=== PATIENT | female | born 1940 | race Caucasian/White ===

== ENCOUNTER 2024-11-15 03:29 | Emergency (ER) | payer OTHER, SELFPAY ==
[2024-11-15 03:42] VITALS: BMI 19.0
[2024-11-15 04:03] VITALS: BP 148/85
[2024-11-15 05:00] VITALS: BP 160/95
[2024-11-15 06:00] VITALS: BP 168/91
[2024-11-15 07:00] VITALS: BP 182/83
--- NOTE | 2024-11-15 07:43 | ED.GENMED ---
History of Present Illness
General
Chief Complaint: Fall
Source: patient, family, ambulance crew and [facility]
Exam Limitations: other ([place]-speaking preferring family translation pulmonary disease specialist was offered)
Time Seen by Provider: 11/15/24 07:03
Nursing documentation reviewed up to this point in time: agreed with
History of Present Illness
History of Present Illness:
84-year-old female past medical history of A-fib, hypertension, anemia presenting to the emergency department from nursing facility after a fall. She claims was mechanical occurring a few hours ago. Was not witnessed does have limited memory of
the fall which is normal for her. She had a right hip repair 10 days ago. Also has been treated for potential wound infection over the past of the right hip. She denies any fevers or any current issues other than ongoing right-sided hip pain.
Denies any numbness weakness neck pain head discomfort she does not believe she hit her head but is unsure.
Review of Systems
Review of Systems
Allergies reviewed?: Yes
All Other Systems: ROS reviewed and negative except as documented in HPI and ROS
Phy Exam
Physical Exam
Physical Exam:
GENERAL: Alert , in no apparent distress
EYE: pupils equal and reactive
NECK: Supple, no significant adenopathy.
ENT: o/p clr, mmm.
CARDIAC: Regular rate and rhythm .
LUNGS: Clear breath sounds bilaterally, no acute respiratory distress, no wheezes/rales/rhonchi
ABDOMEN: Soft, without focal tenderness, no r/g, no cvat
NEUROLOGICAL: Alert and oriented, no focal neuro deficits
SKIN: Incision to the right some very vague mild redness no fluctuance or induration no significant point tenderness surrounding the area. Warm and dry, skin intact.
MUSCULOSKELETAL: No edema, well perfused.
PSYCH: Normal and appropriate interaction.
Course
Orders/Labs/Results
Orders:
Orders
11/15/24 03:35
Hand, Right 3 View [CR Hand - Right Min 3 Views] Urgent
Comment:
Reason For Exam: fall
Hip, Right 2-3 Views [CR Hip - RT w/wo Pel 2-3 Vw*] Urgent
Comment:
Reason For Exam: fall
Include a pelvis x-ray?: Yes
11/15/24 07:18
EKG [Electrocardiogram (*1)] Urgent
Reason for Study: Fatigue / Weakness
CT Head W/o Iv Contrast Urgent
Comment:
Reason For Exam: fall unwitnessed
11/15/24 07:19
EKG- Treatment ONCE
11/15/24 08:36
CBC/With Diff [Complete Blood Count/With Diff] Urgent
CMP [Comprehensive Metabolic Panel] Urgent
Creatine Phosphokinase Urgent
Urinalysis Reflex To Culture Urgent
Date Specimen was Collected: 11/15/24
Time Specimen was Collected: 07:44
11/15/24 08:39
CR Wrist - Right Min 3 Views Urgent
Comment:
Reason For Exam: eval for distal radius fx
Abnormal Lab Results
11/15/24
08:36
RBC 3.56 L 10^6/uL
(4.20-5.40)
Hgb 10.6 L g/dL
(12.0-16.0)
Hct 31.5 L %
(37.0-47.0)
Sodium 131 L mmol/L
(135-145)
BUN 24 H mg/dl
(7-17)
Glucose 104 H mg/dl
(70-99)
Total Protein 5.7 L g/dl
(6.3-8.2)
Albumin 3.0 L g/dl
(3.5-5.0)
11/15/24 08:36
11/15/24 08:36
Vital Signs
Initial and Last Documented VS:
Initial Vital Signs
Temp
99.3 F
11/15/24 03:31
Last Documented Vital Signs
Temp Pulse Resp BP Pulse Ox
99.3 F 90 14 182/83 98
11/15/24 03:31 11/15/24 08:00 11/15/24 08:00 11/15/24 07:00 11/15/24 08:45
MDM/Problems Addressed
MDM/Problems Addressed:
84-year-old female presenting to the emergency department after a fall at the nursing facility. Not witnessed. She has limited memory of it. She normally does have poor memory according to the family. Vital signs on arrival unremarkable.
Patient no obvious distress moving all extremities no neck pain no visible signs of head trauma. Family is concerned that she seems a little bit more fatigue than usual though she has since the surgery. Concerning this plan for labs CT scan of the
head. Hip x-ray without evidence of acute pathology hand x-ray without acute fracture as well. X-ray without emergent findings head CT negative labs unremarkable other than potential mild dehydration with elevated BUN to creatinine and slightly
low sodium advised to keep an eye on these as an outpatient otherwise stable for discharge. Of note the initial blood pressure was in the 140s over 80s the second blood pressure was more elevated this was then repeated also in the 140s over 80s
advised to monitor the blood pressure at home and to make sure she takes her blood pressure medication that she did miss this morning. No chest pain or signs of hypertensive emergency at this time.
*Critical Care Note
Total Time (30-74mins, 75-104mins- exclusive of procedures): Not Applicable
ED Attending Note
-
Portions of this chart may have been created with voice recognition software.� Occasional wrong word or��sound alike� substitutions may have occurred due to the inherent limitations of voice recognition software.
Discharge Plan
Departure
Patient Disposition: Home (Routine Discharge)
Date of Disposition: 11/15/24
Time of Disposition: 09:23
Patient with high blood pressure during this ER visit?: Yes
Condition: Good
Covid-19: Not Applicable
Discharge Problem:
Fall
Instructions: Preventing falls in adults
Referrals:
Steven Ruelas MD [Family Provider] -
Activity Restrictions/Additional Instructions:
You came to the emergency department today after a fall. Here you had a reassuring assessment. Please follow closely with the primary care doctor. Return to the emergency department for any worsening, new or concerning symptoms.
Interventions
Interventions:
*Risk Screen - Suicide Last Done: 11/15/24 03:31
*General Assessment Last Done: 11/15/24 03:31
*Neglect/Abuse Screening Last Done: 11/15/24 03:31
ED- Fall Risk Assessment Last Done: 11/15/24 08:45
*ED COVID-19 Vaccine History Last Done: 11/15/24 03:31
ED-Musculoskeletal Assessment Last Done: 11/15/24 03:31
ED- Neurological Assessment Last Done: 11/15/24 08:45
ED-Skin Assessment Last Done: 11/15/24 08:45
Discharge Date and Time
Print Language: [id number]
[2024-11-15 08:45] LABS: % Basophils 0.1 % (0-2); % Eosinophils 0.1 % (0-6); % Immature Granulocytes 0.4 % (0-0.5); % Lymphocytes 20.9 % (20.5-51.1); % Monocytes 6.1 % (1.7-9.3); % Neutrophils 72.4 % (42.2-75.2); Absolute Lymphocytes 1.4 10^3/uL (1.2-3.4); Absolute Monocytes 0.4 10^3/uL (0.1-0.6); Absolute Neutrophils 4.9 10^3/uL (1.4-6.5); Hematocrit 31.5 % (37.0-47.0); Hemoglobin 10.6 g/dL (12.0-16.0); Mean Corp Hgb Conc. 33.7 g/dL (33.0-37.0); Mean Corpuscular Hgb 29.8 pg (27.0-31.0); Mean Corpuscular Volume 88.5 fL (81.0-99.0); Mean Platelet Volume 8.3 fL (7.4-10.4); Nucleated Red Blood Cells % 0 %; Platelet Count 384 10^3/uL (130-400); Red Blood Cell Count 3.56 10^6/uL (4.20-5.40); Red Cell Dist. Width 12.9 % (11.5-14.5); White Blood Cell Count 6.7 10^3/uL (4.8-10.8)
[2024-11-15 09:05] LABS: Urine Albumin Trace (Neg - Trace); Urine Bilirubin Negative (Negative); Urine Character Clear (Clear); Urine Color Yellow; Urine Glucose Negative (Negative); Urine Ketone Negative (Negative); Urine Leukocyte Negative (Negative); Urine Nitrite Negative (Negative); Urine Occult Blood Negative (Negative); Urine Urobilinogen Negative (Neg - 1+)
[2024-11-15 09:18] LABS: ALT (SGPT) 12 U/L (0-35); AST (SGOT) 26 U/L (14-36); Alkaline Phosphatase 92 U/L (38-126); Blood Urea Nitrogen 24 mg/dl (7-17); Calcium 8.4 mg/dl (8.4-10.2); Carbon Dioxide 24 mmol/L (22-30); Chloride 100 mmol/L (98-107); Creatine Phosphokinase 66 U/L (30-135); Estimated Creatinine Clearance 39 ml/min; Glucose 104 mg/dl (70-99); Potassium 4.6 mmol/L (3.5-5.1); Sodium 131 mmol/L (135-145); Total Bilirubin 0.4 mg/dl (0.2-1.3); Total Protein 5.7 g/dl (6.3-8.2); eGFR > 60.00
[2024-11-15 10:17] VITALS: BP 140/93
--- NOTE | 2024-11-15 12:32 | CM ---
CM faxed updated clinical to [facility].
== END 2024-11-15 13:00 | disposition home or self-care (01) ==
LOC: EMR 03:29
PROVIDERS: Physician Assistant; EMERGENCY PHYSICIAN Emergency Medicine; FAMILY PHYSICIAN Internal Medicine
DX: Z04.3 Encounter for examination and observation following other accident (principal); S60.211A Contusion of right wrist, initial encounter; W19.XXXA Unspecified fall, initial encounter; I10 Essential (primary) hypertension; I48.91 Unspecified atrial fibrillation; D64.9 Anemia, unspecified; M16.12 Unilateral primary osteoarthritis, left hip
CPT/HCPCS: 99285; 70450; 73110; 73130; 73502; 80053; 81003; 82550; 85025; 93005